=== PATIENT | female | born 1970 | race Caucasian/White ===

== ENCOUNTER 2019-08-16 19:48 | Inpatient (IN) ==
--- NOTE | 2019-08-16 20:04 | ED EKG INTERP ---
This chart was entered by Abhishek Burger Scribe, acting as scribe for Chai Cunningham MD. EKG Interpretation - EKG Time of EKG reading by physician:: 19:54 EKG Read and Signed by:: Chai Cunningham EKG Interpretation (*Must complete 3 of following elements*): Normal Rate: 75 Rhythm: NSR [place]: normal QRS: normal NM Interval: normal ST Wave: normal Attestation - Physician/ HOMA Attestation Patient care was provided by Advanced Practice Provider:: No The physician spent face to face time with patient:: No Advanced Practice Provider documentation review:: Supervising physician onsite and consulted in the evaluation and care of this patient. The physician did not have a face to face encounter with the patient. This chart was documented by the indicated scribe, (Abhishek Burger, Ara) and accurately reflects the services I performed and decisions made by Octavio silva Brad R., MD, as attested by the provider's signature.
--- NOTE | 2019-08-16 20:09 | EKG Report ---
Test Performed on : 08/16/2019 7:54:02 PM Test Reason : chest pain Blood Pressure : / mmHG Vent. Rate : 075 BPM Atrial Rate : 075 BPM P-R Int : 148 ms QRS Dur : 078 ms QT Int : 370 ms P-R-T Axes : 024 033 037 degrees QTc Int : 413 ms Normal sinus rhythm. Normal ECG When compared with ECG of 18-FEB-2019 07:41, T wave inversion no longer evident in Inferior leads Unconfirmed Result
[2019-08-16] MEDS ORDERED: ASPIRIN PO ONE (20:22)
[2019-08-16] MEDS ORDERED: MORPHINE IV ONE (20:22)
--- NOTE | 2019-08-16 20:22 | PROVIDER DOCUMENTATION ---
HPI-Chest Pain - General Chief Complaint: Chest Pain Stated Complaint: CHEST PAIN, (L) ARM NUMBNESS (PREVIOUS NV) Time Seen by Provider: 08/16/19 20:04 Source: patient, family ( at bedside) Allergies/Adverse Reactions: Patient Allergies Allergy/AdvReac Type Severity Reaction Status Date / Time codeine Allergy Intermediate ITCHING Verified 08/16/19 23:43 hydrocodone Allergy Intermediate ITCHING Verified 08/16/19 23:43 Home Medications: Home Medication List Medication Instructions Recorded Confirmed Last Taken Type Aspirin [Aspirin EC] 81 mg PO DAILY 08/16/19 08/16/19 08/16/19 08:00 History Atorvastatin Calcium [Lipitor] 80 mg PO DAILY 08/16/19 08/16/19 08/16/19 19:30 History Carvedilol [Coreg] 6.25 mg PO BID 08/16/19 08/16/19 08/16/19 19:30 History Famotidine [Acid Nylon Operator] 20 mg PO BID 08/16/19 08/16/19 08/16/19 19:30 History Losartan [Cozaar] 25 mg PO DAILY 08/16/19 08/16/19 08/16/19 08:00 History Prasugrel [Effient] 10 mg PO DAILY 08/16/19 08/16/19 08/16/19 08:00 History - History of Present Illness-CP Nature of Presenting Problem: 49 YO F pmh for prior NV s/p Stent placement 7 mos ago currently on ASA and efient presents with substernal non radiating chest 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 Denies n/v lightheadedness. Follows with Dr. Brito cardiology. Occurred while pt was resting. Location: reports: substernal Chest Pain Radiation: reports: no radiation Quality of Pain: reports: aching, pressure, sharp Severity in ED: mild Onset/Duration: 4-6 hours ago Timing: still present Context/Activities at Onset: reports: none Modifying Factors: improves with: nothing Nitro Today/Relief: no nitro taken today Aspirin Treatment Today: 325 mg x 1, provided by ED Prior Chest Pain/Cardiac Workup: reports: heart attack Similar Symptoms Previously?: Yes Recently Seen Here or By Another Healthcare Provider: No Review of Systems - Adult - REVIEW OF SYSTEMS - ADULT Constitutional: denies: chills, fever Eyes: reports: no symptoms reported Ears, Nose, Mouth & Throat: reports: no symptoms reported Cardiovascular: reports: see HPI, chest pain Gastrointestinal: denies: abdominal pain, nausea, poor appetite, vomiting Genitourinary: reports: no symptoms reported Musculoskeletal: reports: no symptoms reported Integumentary: reports: no symptoms reported Neurological: reports: no symptoms reported. denies: dizziness/vertigo, headache/migraines, seizure, syncope Endocrine: reports: no symptoms reported Hematologic/Lymphatic: reports: no symptoms reported Allergic/Immunologic: reports: no symptoms reported Past History - Adult - PAST MEDICAL HISTORY-ADULT Review of Records: reports: Old Records Reviewed Major Childhood Illnesses: reports: denies history Cardiovascular: reports: HTN, hyperlipidemia, NV Respiratory: reports: denies history Gastrointestinal: reports: denies history Genitourinary: reports: denies history Musculoskeletal: reports: denies history Neurological: reports: denies history Psychiatric: reports: denies history Endocrine/Immune: reports: denies history - PRIOR SURGERIES/PROCEDURES Surgical/Procedure History: reports: cardiac stent (7 mos ago) - FAMILY HISTORY Family History: reviewed, not pertinent - SOCIAL HISTORY Smoking: quit less than 1 year Living Situation: family Physical Exam-General - PHYSICAL EXAM-ADULT Initial Vital Signs Reviewed: Yes - CONSTITUTIONAL General Appearance: appears well, alert, no apparent distress - EYES Eyes: PERRL/EOMI, pink conjunctivae - HEAD, EARS, NOSE, MOUTH & THROAT HENMT: moist mucous membranes - NECK Neck: full range of motion, supple - RESPIRATORY Respiratory: lungs clear, normal breath sounds - CARDIOVASCULAR Cardiovascular: regular rate, rhythm, no edema - GASTROINTESTINAL (ABDOMEN) Abdominal Exam: non tender, soft. negative: guarding, rigid, rebound, tenderness, hernia, mass - MUSCULOSKELETAL Back Exam: no CVA tenderness Extremity: normal range of motion, normal gait - SKIN Integumentary: normal color, normal turgor, warm/dry. negative: diaphoresis - NEUROLOGIC Neurologic: grossly normal - PSYCHIATRIC Psych/Mental Status: normal mood/affect, oriented x 3 - HEART Score HEART Score: History: Slightly Suspicious HEART Score: ECG: Normal HEART Score: Age: 45-65 Years HEART Score: Risk Factors for Atherosclerotic Disease: > or = 3 Risk Factors or History of Atherosclerotic Disease HEART Score: Troponin: < or = Normal Limit Total HEART Score:: 3 Progress - PLAN OF CARE/RESULTS Progress/Plan/Lab Results: Vital Signs - 8 hr 08/16/19 19:58 08/16/19 20:19 08/16/19 21:01 Temperature 98.8 F Pulse Rate 81 81 77 Respiratory Rate 16 15 23 Blood Pressure 183/122 177/101 149/84 O2 Sat by Pulse Oximetry 98 97 95 08/16/19 21:31 08/16/19 22:01 08/16/19 22:31 Temperature Pulse Rate 68 76 75 Respiratory Rate 15 15 20 Blood Pressure 176/99 158/97 139/97 O2 Sat by Pulse Oximetry 96 96 95 08/16/19 23:01 08/16/19 23:31 08/17/19 00:01 Temperature Pulse Rate 68 81 71 Respiratory Rate 16 18 15 Blood Pressure 168/101 153/96 152/92 O2 Sat by Pulse Oximetry 96 96 96 Laboratory Results - last 24 hr 08/16/19 08/16/19 08/16/19 20:17 20:17 20:17 WBC RBC Hgb Hct MCV MCH MCHC RDW Std Deviation Plt Count MPV Immature Gran % (Auto) Neut % (Auto) Lymph % (Auto) [place] % (Auto) Eos % (Auto) Baso % (Auto) Immature Gran # (Auto) Neut # (Auto) Lymph # (Auto) [place] # (Auto) Eos # (Auto) Baso # (Auto) PT INR PTT (Actin FS) Sodium Potassium Chloride Carbon Dioxide Anion Gap BUN Creatinine Estimated GFR/1.73 m2 BUN/Creatinine Ratio Glucose Calculated Osmolality Calcium Magnesium Total Bilirubin AST ALT Alkaline Phosphatase Creatine Kinase 45 Troponin T < 0.010 Kcr-N-Vglomhiewer Pept 67 Total Protein Albumin Globulin Albumin/Globulin Ratio TSH 08/16/19 08/16/19 08/16/19 20:17 20:17 20:17 WBC 11.02 H RBC 4.74 Hgb 14.3 Hct 42.7 MCV 90.1 MCH 30.2 MCHC 33.5 RDW Std Deviation 13.5 Plt Count 254 MPV 9.7 Immature Gran % (Auto) 0.3 Neut % (Auto) 56.9 Lymph % (Auto) 35.4 [place] % (Auto) 5.7 Eos % (Auto) 1.5 Baso % (Auto) 0.2 Immature Gran # (Auto) 0.03 Neut # (Auto) 6.27 Lymph # (Auto) 3.90 H [place] # (Auto) 0.63 H Eos # (Auto) 0.17 Baso # (Auto) 0.02 PT INR PTT (Actin FS) Sodium 143 Potassium 3.9 Chloride 104 Carbon Dioxide 25 Anion Gap 14 BUN 15 Creatinine 0.6 Estimated GFR/1.73 m2 > 60 BUN/Creatinine Ratio 25 Glucose 128 H Calculated Osmolality 287 Calcium 10.0 Magnesium Total Bilirubin 0.21 AST 13 ALT 16 Alkaline Phosphatase 93 Creatine Kinase Troponin T Hjg-E-Mvmqltgqyfs Pept Total Protein 6.9 Albumin 4.3 Globulin 2.6 Albumin/Globulin Ratio 1.7 TSH 3.22 08/16/19 08/16/19 08/16/19 20:17 20:17 23:31 WBC RBC Hgb Hct MCV MCH MCHC RDW Std Deviation Plt Count MPV Immature Gran % (Auto) Neut % (Auto) Lymph % (Auto) [place] % (Auto) Eos % (Auto) Baso % (Auto) Immature Gran # (Auto) Neut # (Auto) Lymph # (Auto) [place] # (Auto) Eos # (Auto) Baso # (Auto) PT 12.9 INR 0.96 PTT (Actin FS) 28.0 Sodium Potassium Chloride Carbon Dioxide Anion Gap BUN Creatinine Estimated GFR/1.73 m2 BUN/Creatinine Ratio Glucose Calculated Osmolality Calcium Magnesium 1.7 Total Bilirubin AST ALT Alkaline Phosphatase Creatine Kinase 36 Troponin T Avf-X-Olerdhctjpz Pept Total Protein Albumin Globulin Albumin/Globulin Ratio TSH 08/16/19 23:31 WBC RBC Hgb Hct MCV MCH MCHC RDW Std Deviation Plt Count MPV Immature Gran % (Auto) Neut % (Auto) Lymph % (Auto) [place] % (Auto) Eos % (Auto) Baso % (Auto) Immature Gran # (Auto) Neut # (Auto) Lymph # (Auto) [place] # (Auto) Eos # (Auto) Baso # (Auto) PT INR PTT (Actin FS) Sodium Potassium Chloride Carbon Dioxide Anion Gap BUN Creatinine Estimated GFR/1.73 m2 BUN/Creatinine Ratio Glucose Calculated Osmolality Calcium Magnesium Total Bilirubin AST ALT Alkaline Phosphatase Creatine Kinase Troponin T < 0.010 Byh-I-Cjqkzsznovb Pept Total Protein Albumin Globulin Albumin/Globulin Ratio TSH Orders Category Date Time Status Cardiac Monitoring DIRECTED Care 08/16/19 20:23 Active Saline Loc NOW Care 08/16/19 20:22 Active CHEST-2 VIEWS [RAD] Stat Exams 08/16/19 20:22 Completed CBC WITH ELECTRONIC DIFF [HEME] Stat Lab 08/16/19 20:17 Completed CK PROFILE [SP CHEM] Stat Lab 08/16/19 20:17 Completed CK PROFILE [SP CHEM] Stat Lab 08/17/19 00:27 Completed COMPREHENSIVE METABOLIC PANEL [CHEM] Stat Lab 08/16/19 20:17 Completed MAGNESIUM [CHEM] Stat Lab 08/16/19 20:17 Completed PRO B-NATRIURETIC PEPTIDE Stat Lab 08/16/19 20:17 Completed PT [PROTIME WITH INR] [COAG] Stat Lab 08/16/19 20:17 Completed PTT [COAG] Stat Lab 08/16/19 20:17 Completed TROPONIN T Stat Lab 08/16/19 20:17 Completed TROPONIN T Stat Lab 08/17/19 00:27 Completed TSH Stat Lab 08/16/19 20:17 Completed Aspirin Med 08/16/19 20:22 Discontinued 324 mg PO NOW ONE Morphine Med 08/16/19 20:22 Discontinued 4 mg IV NOW ONE EKG [EKG] Stat Ther 08/16/19 19:50 Ordered EKG [EKG] Stat Ther 08/16/19 19:52 Draft EKG [EKG] Stat Ther 08/16/19 23:11 Ordered Result Diagrams: 08/16/19 20:17 08/16/19 20:17 - REASSESSMENT Reassessment #1 Time Reassessed: 22:24 Status: improving (labs reviewed and ok. will do serial enzymes. plan for admission. chest pain improved but still present.) - EKG 1 Time of EKG reading by physician:: 23:35 EKG Read and Signed by:: Chai Cunningham EKG Interpretation (*Must complete 3 of following elements*): Normal Rate: 74 Rhythm: NSR [place]: normal QRS: normal [place] Interval: normal Prior EKG Comparison: unchanged from prior - XRAY 1 XRAY Study: Chest Impression: See EMR Report (CHEST-2 VIEWS - 08/16/2019 INDICATION: CP COMPARISON: 02/18/2019 FINDINGS: The lungs are normally expanded and clear. Heart size and mediastinal contours are normal. No pneumothorax or pleural effusion. IMPRESSION: Negative exam. Electronically signed by Gonzalo Narvaez 08/16/2019 9:14 PM) - CONSULTS/PCP/HOSPITALIST Notification #1 *Consult/PCP/Hospitalist*: Dr. Ayala Time Discussed: 22:40 Consult Disposition: Will see in ED Departure - Departure Date of Disposition Decision: 08/16/19 Time of Disposition Decision: 23:08 DIAGNOSIS: Chest pain Disposition: ADMITTED INPATIENT 09 Certified Medical Emergency: Emergent Condition: Stable Referrals and Follow-Ups: Vahe Catalan MD [Primary Care Provider] - - Critical Care Note This patient required my direct & personal management of CC.: No Attestation - Physician/ HOMA Attestation The physician spent face to face time with patient:: Yes Advanced Practice Provider documentation review:: Supervising physician onsite and consulted in the evaluation and care of this patient. The physician did have a face to face encounter with the patient.
[2019-08-16 20:40] LABS: BASO# 0.02 X1000 (0.0-0.2); BASO% 0.2 % (0.0-0.8); EOS# 0.17 X1000 (0.0-0.7); EOS% 1.5 % (0.0-10.0); HEMATOCRIT 42.7 % (37.0-47.0); HEMOGLOBIN 14.3 g/dL (12.0-16.0); IMM GRAN# 0.03 X1000 (0.0-0.04); IMM GRAN% 0.3 % (0.0-0.5); LYMPH% 35.4 % (20.5-51.1); MCH 30.2 PG (27-31); MCHC 33.5 g/dL (33-37); MCV 90.1 FL (81-99); MONO# 0.63 X1000 (0.11-0.59); MONO% 5.7 % (1.7-9.3); MPV 9.7 FL (7.4-10.4); NEUT# 6.27 X1000 (1.4-6.5); NEUT% 56.9 % (42.2-75.2); PLT 254 X1000 (130-400); RBC 4.74 XMIL (4.2-5.4); RDW 13.5 % (11.5-14.5); WBC 11.02 X1000 (4.8-10.8)
[2019-08-16 21:00] LABS: AGAP 14; ALB/GLOB RATIO 1.7; ALBUMIN 4.3 g/dL (3.5-5.0); ALKALINE PHOSPHATASE 93 U/L (32-104); BUN 15 mg/dL (8-22); CHLORIDE 104 mmol/L (98-107); COSMO 287; CREATININE 0.6 mg/dL (0.5-0.9); ESTIMATED GFR > 60; GLUCOSE 128 mg/dL (70-104); GOT 13 U/L (10-30); GPT 16 U/L (10-36); POTASSIUM 3.9 mmol/L (3.5-5.1); SODIUM 143 mmol/L (136-145); TCO2 25 mmol/L (25-35); TOTAL BILIRUBIN 0.21 mg/dL (0.20-1.00); TOTAL PROTEIN 6.9 g/dL (6.3-8.3)
--- NOTE | 2019-08-16 21:16 | Diag Imaging Result Doc PS360 ---
CHEST-2 VIEWS - 08/16/2019 INDICATION: CP COMPARISON: 02/18/2019 FINDINGS: The lungs are normally expanded and clear. Heart size and mediastinal contours are normal. No pneumothorax or pleural effusion. IMPRESSION: Negative exam. Electronically signed by Gonzalo Narvaez 08/16/2019 9:14 PM
[2019-08-16 23:51] LABS: INR 0.96; PROTIME 12.9 Seconds (11.0-16.0)
--- NOTE | 2019-08-17 01:59 | EKG Report ---
Test Performed on : 08/16/2019 11:35:08 PM Test Reason : Chest Pain,Repeat EKG Blood Pressure : / mmHG Vent. Rate : 074 BPM Atrial Rate : 074 BPM P-R Int : 152 ms QRS Dur : 082 ms QT Int : 398 ms P-R-T Axes : 029 032 028 degrees QTc Int : 441 ms Normal sinus rhythm. Normal ECG When compared with ECG of 16-AUG-2019 19:54, (Unconfirmed) No significant change was found Unconfirmed Result
[2019-08-17] MEDS ORDERED: MORPHINE IV PRN (03:25)
[2019-08-17] MEDS ORDERED: TYLENOL PO PRN (03:25)
[2019-08-17] MEDS ORDERED: NITROGLYCERIN SL PRN (03:25)
[2019-08-17] MEDS ORDERED: ZOFRAN IV PRN (03:25)
[2019-08-17] MEDS ORDERED: NICODERM PATCH TD PRN (03:45)
--- NOTE | 2019-08-17 05:49 | HISTORY AND PHYSICAL ---
GARMENT SEWING MACHINE OPERATOR: Dr. Vahe Catalan. DATE AND TIME: 08/17/2019 at 0045. CHIEF COMPLAINT: Chest pain. HISTORY OF PRESENT ILLNESS: Ms. Willingham is a 49-year-old female with a past medical history most notable for history of coronary artery disease status post myocardial infarction with stent placement x1 in January of 2019. She also has a history of hypertension, hyperlipidemia, gastroesophageal reflux disease. The patient states that yesterday evening on 08/16/2019 that she was at her grandson's birthday constitution party when she began to have chest pain. She stated this was at approximately 3 p.m. She stated she was sitting down and had not been doing anything strenuous when the chest pain began. She reports that it has been constant since that time though the intensity has intermittently gotten worse and then improved. She did report that receiving morphine in the ER did help her chest pain though it is still present at this time. She reports the pain was in the center of her chest. It was nonradiating though she did report some left arm tingling. The patient did state that when she had her heart attack in January of 2019 that she had similar symptoms. She did not have chest pain though was having some right hand numbness and tingling and did present to the ER for evaluation and was ultimately diagnosed with a heart attack and received a stent. She did report some shortness of breath at the time of her onset of chest pain though states this has subsided. She also did report some indigestion though she denies any headache, dizziness, feeling lightheaded, any near syncope, nausea or vomiting. She also denies any cough, fever, body aches, chills, abdominal pain, diarrhea, or hematochezia or melena. She denies any dysuria. She also denies any swelling or pain in extremities. She denies any other numbness or tingling except for the tingling reported in her left hand which she states has resolved at this time. She denied any recent changes to any of her medications. She did receive a full dose aspirin and 4 mg of morphine upon arrival in the ER. Initial and repeat CK and troponin have been negative at this time. All other chemistries were pretty unremarkable. EKGs did show a normal sinus rhythm at a rate of 75 with a QTc of 413. Initial EKG and repeat did not show any acute changes at this time. The patient's vital signs are within normal limits at this time. When she did arrive to the ER, her blood pressure was elevated initially with a reading of 183/122 though at this time her blood pressure has improved with the last reading of 126/67. Chest x-ray did not show any acute abnormalities either. The patient will be placed inpatient admission for further treatment and evaluation of her chest pain. Also, upon further questioning of the patient she did report that in January 2019 she did have her heart attack while vacationing in [place] though she states that since returning home she has seen has been followed by Dr. Catalan with Cardiology. She does report that he has copies of her medical records as well as a disk that contained echocardiogram and other pertinent diagnostic studies. REVIEW OF SYSTEMS: A 14 point review of systems was conducted with the patient and all were negative except for pertinent positives mentioned in above HPI. PAST MEDICAL HISTORY: 1. Coronary artery disease status post myocardial infarction in January of 2019 with stent placement x1. 2. Gastroesophageal reflux disease. 3. Hyperlipidemia. 4. Hypertension. PAST SURGICAL HISTORY: 1. Cardiac stent placement x1. 2. Hysterectomy. 3. Breast augmentation. 4. Tummy tuck. 5. Liposuction. SOCIAL HISTORY: Patient reports that when she had her heart attack she did quit for 3 months, though unfortunately at this time she has started back due to she states some increased stress though she has reduced her normal daily intake from a pack to a half a pack per day. She denies any alcohol or illicit drug use. FAMILY HISTORY: Positive for her mother having a history of diabetes mellitus, COPD, stroke, heart disease and congestive heart failure. She states she does not know her father. She does have an uncle on her mother's side who also has a history of heart disease and has had a triple bypass. ALLERGIES: Patient reports allergies to codeine and hydrocodone. HOME MEDICATIONS: 1. Aspirin 81 mg p.o. daily. 2. Lipitor 80 mg p.o. daily. 3. Coreg 6.25 mg p.o. b.i.d. 4. Famotidine 20 mg p.o. b.i.d. 5. Cozaar 25 mg p.o. daily. 6. Effient 10 mg p.o. daily. DIAGNOSTIC DATA: White blood cell count 11,020, hemoglobin 14.3, hematocrit 42.4, platelet count is 254,000. PT 12.9, INR 0.96, PTT is 28. Sodium 143, potassium 3.9, chloride 104, serum bicarbonate is 25, BUN 15, creatinine 0.6, GFR greater than 60, glucose 128, calcium 10, magnesium 1.7. Liver function tests are within normal limits. CK 45. Troponin less than 0.01. ProBNP 67. TSH is 3.22. EKG showed normal sinus rhythm at a rate of 75 with a QTc of 413. Chest x-ray did not show any acute abnormalities as per Radiology. PHYSICAL EXAMINATION: VITAL SIGNS: Temperature 98.8 degrees, heart rate 69, respirations 16, blood pressure is 126/67 with a MAP of 91. Oxygen saturation is 95% on room air. GENERAL: Ms. Willingham is a very pleasant 49-year-old female. She was resting in the ER stretcher. She was in no acute distress. She was awake, alert, and able to answer questions appropriately. HEENT: Head is atraumatic, normocephalic. Pupils are equal, round, reactive to light, were 3 mm bilaterally and brisk. Oral mucosa was moist. Oropharynx is clear. NECK: Supple. Trachea midline. CARDIOVASCULAR: Patient has S1-S2 present. No murmurs, gallops, rubs appreciated. PULMONARY: Patient has symmetrical chest expansion bilaterally. Lung sounds are clear to auscultation in bilateral full mariscal. ABDOMEN: Abdomen was soft, nontender, nondistended though patient does have a slightly protuberant abdomen noted. Bowel sounds are present in all 4 quadrants, were normoactive. EXTREMITIES: No cyanosis or edema noted. Pulse, motor, and sensory are intact in all extremities. Radial and pedal pulses were 2+ bilaterally. INTEGUMENTARY: The patient's skin is pink, warm, and dry. NEUROLOGICAL: Patient is alert and oriented to person, place, time, and situation. There were no focal neurological deficits noted. ASSESSMENT AND PLAN: 1. Chest pain. For further evaluation of this we will continue with a series of cardiac enzymes. We will do repeat EKG in the morning. We have placed the patient to be NPO until evaluated by Cardiology. We will repeat a BMP, magnesium and a lipid profile in the morning as well. We did not order any further diagnostic studies at this time such as an echocardiogram. The patient has had 1 recently in January and has informed me that Dr. Catalan does have records of this at his office. We did place a cardiology consult and await their evaluation and further recommendations for management. 2. Hypertension. We will continue regular prescribed medicine of Coreg and Cozaar. 3. Hyperlipidemia. We will continue her atorvastatin. We have placed a lipid profile as well. 4. History of coronary artery disease status post stent placement x1. We will continue with treatment as mentioned above for #1 as well as we have continued her regularly prescribed medicines of 80 mg aspirin daily, her Effient, Coreg, Cozaar, and atorvastatin. We have placed p.r.n. orders for morphine and nitroglycerin as needed for chest pain. 5. Gastroesophageal esophageal reflux disease. We have continued her Pepcid. 6. Deep venous thrombosis prophylaxis will be provided with sequential compression devices. The patient has been placed on the medical floor with telemetry. She will have vital signs q.4 hours. We will do strict intake and output. The patient's serum glucose was slightly elevated at 128. We have added on a hemoglobin A1c. Further orders and recommendations pending hospital course, diagnostic studies, and physician evaluation. Dictated by TEJ Soto for Roque Ayala MD cc: Roque Ayala MD Patient presenting with chest pain and has a past medical history most notable for history of coronary artery disease status post myocardial infarction with stent placement x1 in January of 2019. Cardiology consulted. I agree with the assessment and plan of the SAS BI DEVELOPER. Dr. Lucy WEBSTER
--- NOTE | 2019-08-17 07:39 | EKG Report ---
Test Performed on : 08/17/2019 06:48:26 AM Test Reason : Chest Pain Blood Pressure : / mmHG Vent. Rate : 067 BPM Atrial Rate : 067 BPM P-R Int : 162 ms QRS Dur : 084 ms QT Int : 416 ms P-R-T Axes : 032 041 039 degrees QTc Int : 439 ms Normal sinus rhythm. Low voltage QRS Borderline ECG When compared with ECG of 16-AUG-2019 23:35, (Unconfirmed) No significant change was found Unconfirmed Result
[2019-08-17] MEDS ORDERED: ASPIRIN EC PO SCH (09:00)
[2019-08-17] MEDS ORDERED: EFFIENT PO SCH (09:00)
[2019-08-17] MEDS ORDERED: COREG PO SCH (09:00)
[2019-08-17] MEDS ORDERED: COZAAR PO SCH (09:00)
[2019-08-17] MEDS ORDERED: PEPCID PO SCH (09:00)
[2019-08-17 09:57] LABS: HEMOGLOBIN A1C 6.1 % (4.8-6.0)
[2019-08-17 09:59] LABS: AGAP 15; BUN 12 mg/dL (8-22); CALCIUM 9.1 mg/dL (8.8-10.2); CHLORIDE 101 mmol/L (98-107); CK PROFILE 36 U/L (24-173); COSMO 279; CREATININE 0.6 mg/dL (0.5-0.9); ESTIMATED GFR > 60; GLUCOSE 129 mg/dL (70-104); MAGNESIUM 1.7 mg/dL (1.5-2.7); POTASSIUM 3.8 mmol/L (3.5-5.1); SODIUM 139 mmol/L (136-145); TCO2 23 mmol/L (25-35)
[2019-08-17 12:06] VITALS: BP 129/71
--- NOTE | 2019-08-17 12:14 | CARDIOLOGY CONSULTATION ---
DATE: 08/17/2019 CHIEF COMPLAINT ON PRESENTATION: Chest pain. HISTORY OF PRESENT ILLNESS: Ms. Willingham is a 49-year-old, white female with a history of PCI in January of 2019. She presented for evaluation of chest pain that occurred at rest, felt like a pressure sensation between her breasts. There was some numbness in her left arm. It persisted for several hours and in actuality, it is still going on. There is no exertional component to this symptom. She reports occasionally just some very minimal shortness of breath with the episodes but otherwise, no other associated symptoms. This feels somewhat different to what she had in [place] back in January. PAST MEDICAL HISTORY: 1. Significant for PCI in January of 2019. This occurred in the setting of a myocardial infarction. 2. Reflux disease. 3. Hyperlipidemia. 4. Hypertension. SOCIAL HISTORY: The patient quit smoking previously but has since resumed. FAMILY HISTORY: Significant for hypertension, COPD, diabetes. REVIEW OF SYSTEMS: A 10 system review of systems is negative except for those things mentioned in the HPI. PHYSICAL EXAMINATION: She is afebrile. Heart rate is 66, blood pressure 134/65. General: She is in no acute distress. HEENT: Oropharynx is moist. Normal dentition. Eye examination shows pink conjunctivae and white sclerae. Neck: Examination shows no obvious thyromegaly or thyroid tenderness. Cardiovascular: She sounds to be in a regular rate and rhythm. She has no obvious murmurs. She has no S3. She has no lower extremity edema. Chest: Examination sounds clear bilaterally. She has no increased work of breathing. Abdomen: Soft, nontender, and nondistended. She has no obvious organomegaly. Skin Examination: Warm and dry throughout, without any rashes. Neurological: She is moving all extremities well. She has no lateralizing deficits. PERTINENT DATA: White count is 11, hematocrit 42, platelet count is 254,000. Her sodium is 139, potassium is 3.8, BUN 12, creatinine 0.6. Her magnesium level is 1.7. Cardiac enzymes are negative. Her electrocardiogram on presentation demonstrated sinus rhythm, no ischemic changes. Subsequent EKG that was checked at 2335 yesterday showed sinus rhythm, no ischemic changes. Final EKG this morning at 6:48, sinus rhythm, no ischemic changes. No signs of previous infarct. Her chest x-ray demonstrated an unremarkable study. ASSESSMENT: Ms. Willingham is a 49-year-old female who has a history of previous percutaneous coronary intervention, who presented with chest pain. PLAN: We will proceed with myocardial perfusion imaging. I have restarted her statin therapy. Otherwise, continue her on her beta bill, ARB, Effient, and aspirin. I have instructed her to quit smoking. cc: Omar Perez MD
[2019-08-17] MEDS ORDERED: LEXISCAN ONE (13:35)
--- NOTE | 2019-08-17 17:17 | Diag Imaging Result Document ---
PROCEDURE NAME: MYOCARDIAL PERF SCAN, STR/REST - 08/17/2019 SUMMARY: The patient was administered 14.4 mCi of technetium-99m sestamibi after which resting cardiac images were obtained. The patient was subsequently administered Lexiscan 0.4 mg intravenously after which the heart rate went from 63 beats per minute to 100 beats per minute, and the blood pressure went from 153/83 to 151/79. With Lexiscan, the patient denied chest discomfort. Following the administration of Lexiscan, the patient was administered 14.4 mCi of technetium-99m sestamibi, after which gated stress cardiac images were obtained. Baseline ECG demonstrated sinus rhythm. With Lexiscan, there were no diagnostic ST-segment changes. SPECT images were reconstructed in the short, horizontal, and vertical long axis. Review of these images demonstrated a small area of mild attenuation in the apex of left ventricle on stress images, which appears similar on resting images. No significant reversibility is evident. Gated images demonstrate a calculated left ventricular ejection fraction of 76% with symmetrical wall motion/thickening. CONCLUSIONS: 1. Adequate response to Lexiscan. 2. Clinically negative for chest pain. 3. Electrocardiographically negative for Lexiscan induced myocardial ischemia. 4. Lexiscan sestamibi images demonstrate small fixed area of mild attenuation in the apex with corresponding preserved regional wall motion most consistent with mild breast attenuation artifact. There is no scintigraphic evidence of inducible myocardial ischemia. Normal left ventricular systolic function demonstrated. cc: MD Dena Youssef PA
--- NOTE | 2019-08-17 20:47 | ECHO REPORT ---
ORDER DATE: 08/17/2019 MEASUREMENTS: Septal thickness 1.0, left ventricular internal diameter in diastole 4.5, posterior wall thickness 0.9, left ventricular internal diameter in systole 2.6, aortic root 2.5, left atrium 3.4. SUMMARY: 1. Technically difficult study due to limited apical acoustic window quality. Intravenous echo contrast agent Optison was utilized to enhance endocardial definition. 2. Aortic valve is trileaflet and opens normally on 2-dimensional images. The peak gradient across aortic valve is less than 10 mmHg. Mitral, tricuspid, and pulmonic valves are without evidence of structural abnormality. There is trace tricuspid regurgitation. The aortic root is normal size. 3. Normal left ventricular dimensions are demonstrated. The estimated left ventricular ejection fraction appears to be at least 65%. No regional wall motion abnormality is evident. Left atrium, right atrium, right ventricle are normal size with grossly preserved right ventricular systolic function. 4. No pericardial effusion. 5. Appearance of inferior vena cava suggests normal central venous pressure. CONCLUSIONS: 1. Technically difficult study. 2. No significant valvular abnormality evident. 3. Normal left ventricular systolic function without regional wall motion abnormality evident. cc: MD Dena Youssef PA
[2019-08-18] MEDS ORDERED: LIPITOR PO SCH (09:00)
--- NOTE | 2019-08-18 18:37 | DISCHARGE SUMMARY ---
ADMISSION DATE: 08/16/2019 DISCHARGE DATE: 08/17/2019 DISPOSITION: Home. FOLLOW-UP: Dr. Catalan. CONSULTATION DURING ADMISSION: Cardiology was consulted. Patient was seen by Dr. Omar Perez. INVASIVE PROCEDURES DONE DURING ADMISSION: None. IMAGING STUDIES OF SIGNIFICANCE: A myocardial perfusion scan was done which showed no evidence of sensitive graphic evidence of inducible myocardial ischemia. Normal left ventricular systolic function demonstrated. ADMISSION DIAGNOSES: 1. Chest pain 2. Hypertension. 3. Dyslipidemia. DISCHARGE DIAGNOSES: 1. Chest pain on admission with negative troponins. EKG and stress test most likely noncardiac. 2. Costochondritis. 3. History of coronary artery disease status post stents about 6 months ago. The patient continues to be on heart medications, and will follow up with Dr. Catalan. 4. History of gastroesophageal reflux disease. 5. Hypertension. 6. Dyslipidemia. 7. Tobacco smoking. Patient has been advised on cessation. PRESENTING COMPLAINT: Chest pain. HISTORY OF PRESENTING COMPLAINT: Ms. Arita is a 49-year-old female who is known to have hypertension, and dyslipidemia, recently treated for myocardial infarction, status post stent placement in January of 2019, came to the emergency department because of acute onset of chest pain. It was in the mid sternum radiating to the right side. Upon presentation, she was evaluated. Initial troponin was negative as well as the EKG. Troponins were done 3 times during the hospital course which were all negative. A repeat EKG did not show changes either. The patient was evaluated by Cardiology, and because of her recent cardiac history, it was recommended a stress test which was successfully done and that has come back negative. Cardiology evaluated the patient. Dr. Perez spoke to me directly, and that from cardiac standpoint, the patient can be discharged. I evaluated Ms. Willingham this evening. She refers to be feeling a whole lot better. No chest pain, except that when she moves around it hurts. When I examined her, she does have costochondral joint tenderness, which I think is probably some of the reason for her chest pain. I have discussed the entire stress test report with her, and all her investigations with her. All her concerns and questions were answered. The was at the bedside at the time of the encounter. TIME SPENT FOR DISCHARGE: 35 minutes. DISCHARGE MEDICATIONS: 1. Aspirin 81 mg daily. 2. Atorvastatin 80 mg p.o. daily. 3. Carvedilol 6.25 b.i.d. 4. Famotidine 20 mg b.i.d. 5. Effient 10 mg p.o. daily. 6. Losartan 25 mg p.o. daily. 7. Nicotine patch. cc: MD Vahe Edmondson MD
== END 2019-08-17 18:32 | disposition home or self-care (01) | DRG 313 ==
LOC: ED 19:48 → SUATTDRO 08-17 01:26 → EDIPHOLD 08-17 01:26 → 3N 08-17 07:38
PROVIDERS: ATTEND Internal Medicine